=== PATIENT | female | born 1955 | race Hispanic/Latino ===

== ENCOUNTER → 2018-01-11 | Outpatient (CLI) | payer OTHER ==
[~2018-01-11] MED LIST: ASPI-555 PO; LETR2.5T6 PO; METF500T6 PO; vitaminD3 PO
== END | disposition home or self-care (01) ==
LOC: RAH 07:52
PROVIDERS: ATTEND Family Medicine
DX: R92.8 Other abnormal and inconclusive findings on diagnostic imaging of breast (principal); Z85.3 Personal history of malignant neoplasm of breast
CPT/HCPCS: 77066

== ENCOUNTER → 2018-11-20 | Outpatient (CLI) | payer OTHER ==
[~2018-11-20] MED LIST changes: +METF-444 PO; -METF500T6 PO
== END | disposition home or self-care (01) ==
LOC: RAH 09:43
PROVIDERS: ATTEND Podiatrist
DX: I70.90 Unspecified atherosclerosis (principal); E11.51 Type 2 diabetes mellitus with diabetic peripheral angiopathy without gangrene; M47.815 Spondylosis without myelopathy or radiculopathy, thoracolumbar region
CPT/HCPCS: 71046; 93925

== ENCOUNTER → 2019-01-15 | Outpatient (CLI) | payer OTHER ==
[~2019-01-15] MED LIST changes: +CYAN250014 PO; +LISI2.5T2 PO; +ROSU5TAB11 PO
== END | disposition home or self-care (01) ==
LOC: RAH 07:52
PROVIDERS: ATTEND Internal Medicine
DX: R92.8 Other abnormal and inconclusive findings on diagnostic imaging of breast (principal); Z85.3 Personal history of malignant neoplasm of breast
CPT/HCPCS: 77066

== ENCOUNTER → 2020-01-28 | Outpatient (CLI) | payer OTHER ==
[~2020-01-28] MED LIST changes: -LETR2.5T6 PO; +LETR2.5T7 PO; -ROSU5TAB11 PO; +ROSU5TAB12 PO
== END | disposition home or self-care (01) ==
LOC: RAH 01-23 01:43
PROVIDERS: ATTEND Family Medicine
DX: R92.0 Mammographic microcalcification found on diagnostic imaging of breast (principal); Z85.3 Personal history of malignant neoplasm of breast
CPT/HCPCS: 77066

== ENCOUNTER → 2020-06-29 | Outpatient (CLI) | payer OTHER ==
[~2020-06-29] MED LIST changes: -ASPI-555 PO; +ASPI-556 PO
== END | disposition home or self-care (01) ==
LOC: RAH 08:46
PROVIDERS: ATTEND Internal Medicine Cardiovascular Disease
DX: R07.9 Chest pain, unspecified (principal); R06.02 Shortness of breath
CPT/HCPCS: 78452; 93017; 96374; A9500 ×2

== ENCOUNTER → 2021-04-26 | Outpatient (CLI) | payer MEDICARE ==
[~2021-04-26] MED LIST changes: +LISI2.5T13 PO; -LISI2.5T2 PO
== END | disposition home or self-care (01) ==
LOC: RAH 12:33
PROVIDERS: ATTEND Internal Medicine
DX: R92.2 Inconclusive mammogram (principal); C50.411 Malignant neoplasm of upper-outer quadrant of right female breast
CPT/HCPCS: 77066

== ENCOUNTER → 2022-11-07 | Outpatient (CLI) | payer MEDICARE | END | disposition home or self-care (01) | LOC: RAH 12:43 | PROVIDERS: ATTEND Internal Medicine | DX: R92.8 Other abnormal and inconclusive findings on diagnostic imaging of breast (principal); Z98.890 Other specified postprocedural states | CPT/HCPCS: 76641; 77065 ==

== ENCOUNTER → 2023-11-09 | Outpatient (CLI) | payer MEDICARE | END | disposition home or self-care (01) | LOC: RAH 10:31 | PROVIDERS: ATTEND Internal Medicine | DX: R92.323 Mammographic fibroglandular density, bilateral breasts (principal); Z85.3 Personal history of malignant neoplasm of breast | CPT/HCPCS: 77066 ==

== ENCOUNTER → 2023-11-17 | Outpatient (CLI) | payer MEDICARE | END | disposition home or self-care (01) | LOC: RAH 12:28 | PROVIDERS: ATTEND Family Medicine | DX: S83.241A Other tear of medial meniscus, current injury, right knee, initial encounter (principal); S80.11XA Contusion of right lower leg, initial encounter; X58.XXXA Exposure to other specified factors, initial encounter; Y93.89 Activity, other specified; Y92.89 Other specified places as the place of occurrence of the external cause; Y99.8 Other external cause status | CPT/HCPCS: 73721 ==

== ENCOUNTER → 2024-10-23 | Outpatient (CLI) | payer MEDICARE ==
[~2024-10-23] MED LIST changes: -ROSU5TAB12 PO; +ROSU5TAB51 PO
--- NOTE | 2024-10-24 08:57 | HMCIMG ---
Diagnostic mammogram and right breast ultrasound HISTORY: HX OF BREAST CA COMPARISON: 11/09/2023 TECHNIQUE: Bilateral digital diagnostic mammogram was performed. Right breast ultrasound images were performed as well. were obtained. FINDINGS: Parenchymal density: There are scattered areas of fibroglandular density. There is architectural distortion There or clustered position of the right breast consistent with the history of previous lumpectomy. Findings are unchanged since prior exam. Breast parenchyma appears otherwise unremarkable. There is no evidence of a dominant mass, or suspicious microcalcification. There is no evidence of nipple retraction or skin thickening. Right breast ultrasound shows some fibrotic change in the region of the 12:00 lumpectomy consistent with scarring. There is no evidence of a discrete focal mass. Findings are unchanged compared to previous ultrasound. The right breast parenchyma appears otherwise unremarkable. There are no focal masses or cysts. Right axillary area was imaged and appears unremarkable. IMPRESSION: 1. Lumpectomy changes o'clock position right breast without interval progression. 2. No evidence of a malignant process in either breast and no interval change. 3. Stable right breast ultrasound. The patient was entered into a reminder system with a target due date for their next mammogram. BI-RADS CATEGORY 2: BENIGN FINDINGS Recommend monthly self breast exam as well as annual clinical examination. A negative x-ray should not delay biopsy if a dominant or clinically suspicious mass is present, since 8-10% of cancers are not identified by mammography. Dense breasts particularly, may obscure an underlying neoplasm. Some of these may be detected clinically and therefore, clinical examination is an essential part of breast evaluation.
--- NOTE | 2024-10-24 14:36 | HMCIMG ---
Exam: Right breast ultrasound IMPRESSION: 1. Stable right breast ultrasound findings are discussed in the diagnostic mammogram report.
== END | disposition home or self-care (01) ==
LOC: RAH 13:27
PROVIDERS: ATTEND Internal Medicine
DX: C50.411 Malignant neoplasm of upper-outer quadrant of right female breast (principal); R92.321 Mammographic fibroglandular density, right breast
CPT/HCPCS: 76641; 77066

== ENCOUNTER → 2024-12-25 | Outpatient (CLI) | payer MEDICARE ==
[2024-12-25 12:20] LABS: CREATININE 1.3 mg/dL (0.5-1.0)
== END | disposition home or self-care (01) ==
LOC: LAB 08:08
PROVIDERS: ATTEND Internal Medicine Cardiovascular Disease
DX: I65.21 Occlusion and stenosis of right carotid artery (principal)
CPT/HCPCS: 36415; 80048

== ENCOUNTER → 2025-01-16 | Outpatient (CLI) | payer MEDICARE ==
--- NOTE | 2025-01-16 09:28 | HMCIMG ---
BONE DENSITOMETRY: HISTORY: UNSPECIFIED MENOPAUSAL AND PERIMENOPAUSAL DISORDER Comparison: none FINDINGS: BMD measured at AP spine L1-L4 is 0.975 g/cm2 with a T-score of -0.7 Bone density is up to 10% below young normal. This patient is considered normal according to WHO criteria. Fracture risk is low. BMD measured at Left Femoral Neck is 0.845 g/cm2 with a T-score of -0.2 Bone density is up to 10% below young normal. This patient is considered normal according to WHO criteria. Fracture risk is low. BMD measured at Left Femoral Total is 0.888 g/cm2 with a T-score of -0.6 Bone density is up to 10% below young normal. This patient is considered normal according to WHO criteria. Fracture risk is low. IMPRESSION: Normal bone mineral density.
== END | disposition home or self-care (01) ==
LOC: RAH 07:48
PROVIDERS: ATTEND Family Medicine
DX: N95.9 Unspecified menopausal and perimenopausal disorder (principal)
CPT/HCPCS: 77080

== ENCOUNTER → 2025-03-25 | Outpatient (CLI) | payer MEDICARE ==
--- NOTE | 2025-03-26 19:13 | HMCIMG ---
EXAMINATION: NONCONTRAST MRI OF THE LEFT HIP. HISTORY: Left lower limb enthesopathies COMPARISON: None provided TECHNIQUE: Multiplanar, multisequence MR images of the pelvis and left hip are submitted. FINDINGS: There is normal bone marrow signal without evidence of fracture, avascular necrosis, or osteomyelitis. There is no displaced labral tear appreciated. Left sacroiliac and hip joints are preserved. Left greater trochanteric bursitis with mild gluteus medius insertional tendinosis. Mild hamstring conjoint tendon ischial tuberosity attachment tendinosis. The musculature of the pelvis, including the piriformis muscles, appear within normal limits. The iliopsoas tendon appears intact. There is no iliopsoas bursitis. Visualized aspect of the left sciatic nerve appears within normal limits. Subcentimeter anterior and posterior wall uterine fibroids, amenable for ultrasound evaluation. Urinary bladder is normal. IMPRESSION: 1. No acute osseous injury. 2. Left greater trochanteric bursitis with mild gluteus medius insertional tendinosis. 3. Mild hamstring conjoint tendon ischial tuberosity attachment tendinosis. /[place]
== END | disposition home or self-care (01) ==
LOC: RAH 13:52
PROVIDERS: ATTEND Orthopaedic Surgery
DX: M70.62 Trochanteric bursitis, left hip (principal); M76.892 Other specified enthesopathies of left lower limb, excluding foot; M67.854 Other specified disorders of tendon, left hip; D25.9 Leiomyoma of uterus, unspecified
CPT/HCPCS: 73721